=== PATIENT | male | born 1960 | race Two or more races ===

== ENCOUNTER 2020-02-06 11:38 | Outpatient (CLI) | payer OTHER ==
[~2020-02-06] VITALS: Ht 175.3 cm; Wt 67.2 kg
[2020-02-07] MEDS ORDERED: ATORVASTATIN CA40 MG ORAL (08:41)
[2020-02-07] MEDS ORDERED: NIACIN500 M1 PO (08:41)
[2020-02-07] MEDS ORDERED: GLIPIZIDE5 MG ORAL (08:41)
[2020-02-07] MEDS ORDERED: METFORMIN HCL500 M1 ORAL (08:41)
--- NOTE | 2020-02-12 18:30 | Consultation ---
DATE OF CONSULTATION: 02/06/2020 CHIEF COMPLAINT: Referral for screening colonoscopy. PAST MEDICAL HISTORY: 1. Hypertension. 2. Diabetes. 3. Hypercholesteremia. 4. History of glaucoma, 5. Pancreatitis. 6. Colonic polyps. PAST SURGICAL HISTORY: Appendectomy. MEDICATIONS: Please see medication reconciliation list. FAMILY HISTORY: No family history of GI malignancies. SOCIAL HISTORY: The patient denies any tobacco, alcohol, or drug abuse. REVIEW OF SYSTEMS: A 10-point review of systems was performed and was negative. PHYSICAL EXAMINATION: VITAL SIGNS: Temperature 98.2. Vital signs stable. Height is 5 feet 9 inches, weight is 148. HEENT: Normocephalic, atraumatic. Sclerae anicteric. NECK: Supple. No evidence of obvious adenopathy. CARDIOVASCULAR: Regular rate and rhythm. Plus S1, S2. LUNGS: Clear to auscultation bilaterally. ABDOMEN: Positive bowel sounds. Soft and nontender. No rebound. No guarding. No peritoneal sign. EXTREMITIES: No cyanosis, no clubbing, no edema. ASSESSMENT AND PLAN: This is a 59-year-old male referred for screening colonoscopy evaluation. The patient was given instructions for colonoscopy. Risks and benefits of procedure were explained to him. We are going to schedule him as soon as authorization is obtained. Jitendra Parker M.D. DR: [id number] JOB#: [id number] CC:
== END 2020-02-06 13:38 | disposition home or self-care (01) ==
LOC: PAN 11:38
DX: Z00.00 Encounter for general adult medical examination without abnormal findings (principal)
CPT/HCPCS: G0463